=== PATIENT | female | born 1970 | race Caucasian/White ===

== ENCOUNTER 2024-06-08 11:56 | Observation (INO) | payer OTHER, SELFPAY ==
[2024-06-08] VITALS (13 sets, daily range): BP systolic 97–127; BP diastolic 62–85; PULSE 83–102; RESP 14–95; TEMP 36.1–36.9; O2SAT 96–100; BMI 28.3
--- NOTE | 2024-06-08 12:24 | PD.EDRME ---
Rapid Medical Screening Exam E Arrival date/time: 06/08/24 11:56 This is a 54-year-old female presented to the emergency department with complaints of left mid abdominal pain x 1 day. Associated with nausea and emesis. I have greeted and performed a focused initial assessment of this patient. Initial appropriate labs ordered at this time. A comprehensive ED assessment and evaluation of the patient and analysis of all test and completion of medical decision making process will be conducted by additional ED provider. Chief Complaint: Abdominal Pain Time Seen by Provider: 06/08/24 12:14 Vital signs: Vital Signs Temperature 98.0 F 06/08/24 12:14 Pulse Rate 87 06/08/24 12:14 Respiratory Rate 16 06/08/24 12:14 Blood Pressure 127/85 H 06/08/24 12:14 Pulse Oximetry (%) 100 06/08/24 12:14 Oxygen Delivery Method Room Air 06/08/24 12:14
--- NOTE | 2024-06-08 12:29 | XR_ITS ---
Examination: CT abdomen with intravenous contrast CT pelvis with intravenous contrast 2-D coronal reconstructions 2-D sagittal reconstructions Date and time of exam:June 08, 2024 1522 hours INDICATIONS: Onset left-sided abdominal pain today, history diverticulitis on CT examination November 18, 2022. CTDI: vol (mGy) 12.7 DLP: (mGycm) 698 Technique: Multiple axial sections of the abdomen and pelvis have been obtained. 64 slice high-resolution scanner used. 3 mm axial sections have been obtained, post intravenous injection 60 cc [id number] 2-D sagittal, coronal reconstructions obtained. Low dose protocols were performed. One or more of the following dose reduction techniques were used; automated exposure control, adjustment of the mA and/or KV according to patient size, use of iterative reconstruction technique. Findings: No focal liver or splenic lesions No definite gallstones No pancreatic or adrenal mass No renal or ureteral calculi, no hydronephrosis Aorta normal size The appendix is thickened fluid-filled and inflamed, axial images 120 through 160, retrocecal Colonic diverticulosis No pelvic abscess Bladder intact IMPRESSION: Acute appendicitis, no pelvic abscess
[2024-06-08 12:48] LABS: Basophils # (Auto) 0.1 Thou/mm3 (0.0-0.2); Basophils % (Auto) 0 % (0-2.5); Eosinophils % (Auto) 0 % (0-10); Hematocrit 41.7 % (36.0-46.0); Hemoglobin 14.3 g/dL (12.0-16.0); Immature Granulocytes % (Auto) 0 % (0-0); Immature Granulocytes Auto 0.06 Thou/mm3 (0.00-0.00); Lymphocytes # (Auto) 0.9 Thou/mm3 (1.0-4.8); Lymphocytes % (Auto) 5 % (10-50); Mean Corpuscular HGB Conc 34.3 g/dl (31.0-37.0); Mean Corpuscular Hemoglobin 31.2 pg (25.0-35.0); Mean Corpuscular Volume 91 fL (80-100); Monocytes # (Auto) 0.8 Thou/mm3 (0.0-0.8); Monocytes % (Auto) 5 % (0-12); Neutrophils # (Auto) 14.3 Thou/mm3 (1.8-7.7); Neutrophils % (Auto) 89 % (37-80); Nucleated Red Blood Cell % 0 /100 WBC (0); Platelet Count 247 Thou/mm3 (140-440); Red Blood Count 4.59 Miln/mm3 (4.00-5.20); White Blood Count 16.2 Thou/mm3 (3.6-11.0)
[2024-06-08 13:00] LABS: Prothrombin Time 10.7 Seconds (9.0-12.2)
[2024-06-08 13:05] LABS: Alanine Aminotransferase 18 U/L (10-49); Albumin, Serum 4.8 gm/dL (3.5-5.0); Albumin/Globulin Ratio 1.9 (1.2-2.2); Alkaline Phosphatase 50 U/L (46-116); Anion Gap 9 (7-16); Aspartate Amino Transferase 13 U/L (0-34); BUN/Creatinine Ratio 24 Ratio (12-20); Bilirubin,Total 0.5 mg/dL (0.3-1.2); Blood Urea Nitrogen 19 mg/dL (9-23); Carbon Dioxide 24.3 mMol/L (20.0-31.0); Chloride 108 mMol/L (98-107); Creatinine (Component) 0.8 mg/dL (0.6-1.3); Estimated Creatinine Clearance 81.6 mL/min (>60); Globulin 2.5 gm/dL (2.3-3.5); Glucose 107 mg/dL (74-106); Lipase 44 U/L (12-53); Magnesium 2.2 mg/dL (1.6-2.6); Osmolality,Calculated 283 (275-295); Sodium 141 mMol/L (136-145); Total Protein 7.3 gm/dL (5.7-8.2); eGFR > 60 See Note
[2024-06-08] MEDS: ONDANSETRON ODT 4 MG TABRAP PO (13:37)
[2024-06-08] MEDS: HYDROcodone/APAP 5/325 TABLET 1 TAB PO ×2 (13:39→22:36)
[2024-06-08] MEDS: SODIUM CHLORIDE 0.9% 1000 ML 1,000 ML 999 ML IV (15:41)
[2024-06-08] MEDS: ONDANSETRON INJ 2 MG/ML INJ 2 ML 4 MG IV (15:45)
[2024-06-08] MEDS: MORPHINE SULF INJ 10 MG/ML VIAL 5 MG IVP (15:45)
--- NOTE | 2024-06-08 18:30 | PC.NURSE ---
PT IN TODAY FOR ABD PAIN, N/V FOR THE LAST WEEK. PT STATES THAT TODAY SHE FELT WORSE SO SHE CAME IN FOR EVALUATION.
--- NOTE | 2024-06-08 18:30 | PD.EDABDPN ---
ED Abdominal Pain RME/HPI General Chief Complaint: Abdominal Pain Stated complaint: abdominal pain and n/v this am Time seen by provider: 06/08/24 12:14 Arrival date/time: 06/08/24 11:56 RME / HPI RME / HPI narrative: 54-year-old female patient with significant history of lupus, psoriatic arthritis, came in for evaluation regarding right lower quadrant pain. Onset of symptoms earlier this morning associated with nausea, vomiting nonbloody. Denies any fever. Denies any other complaints no medications taken prior to arrival. Related Data Previous Rx's ?Medication ?Instructions ?Recorded ciprofloxacin HCl 500 mg tablet 500 mg PO BID #20 tabs 11/18/22 hydrocodone 5 mg-acetaminophen 325 1 tab PO Q6H PRN pain #14 tabs 11/18/22 mg tablet Allergies Allergy/AdvReac Type Severity Reaction Status Date / Time No Known Allergies Allergy Verified 06/08/24 11:59 Review of Systems Review of Systems Narrative Review of Systems: Review of system reviewed and within normal limits except mentioned in HPI ED Exam Narrative Physical exam: VITAL SIGNS: Reviewed. GENERAL APPEARANCE: Alert and interactive, follows commands, no acute distress, HEAD AND FACE: Non-traumatic. ENT: PERRL, pink conjunctivitis, eyelid no trauma, Mucous membrane moist. NECK: Supple, nontender, no nuchal rigidity. CHEST: No tenderness, no crepitus, no paradoxical movement, no retractions. LUNGS: Clear, well ventilated, symmetric, no rales, no wheezing, no ronchi, no stridor, good breath sounds bilaterally. HEART: Regular rate, regular rhythm, no murmur, no gallops. ABDOMEN: Soft, positive bowel sounds, nondistended, no guarding, right lower quadrant tenderness, no rebound, no masses, RECTAL: Deferred. GENITAL: Deferred. NEUROLOGICAL: Gross motor function intact sensory function intact, Appropriate for age. MUSCULOSKELETAL: low back nontender, full range of motion. EXTREMITIES: Nontender, full range of motion. SKIN: Color pink, dry, no rash, no lacerations, no abrasions, no contusions. LYMPHATICS: Deferred. Course Quality Measures none Orders Category Date Time Status CT Screening NOW Care 06/08/24 12:29 Active Insert IV NOW Care 06/08/24 15:06 Active NPO STAT Care 06/08/24 12:22 Active Consult to General Surgery Stat Cons 06/08/24 18:[address] abdomen pelvis w con Stat Exams 06/08/24 12:29 Completed CBC Stat Lab 06/08/24 12:34 Completed Comprehensive Metabolic Panel Stat Lab 06/08/24 12:34 Completed Lipase Stat Lab 06/08/24 12:34 Completed Magnesium Stat Lab 06/08/24 12:34 Completed Prothrombin Time with INR Stat Lab 06/08/24 12:34 Completed Urinalysis Stat Lab 06/08/24 12:22 Ordered HYDROcodone*/APAP 5/325 [[place] 5/325] Med 06/08/24 13:36 Discontinued 1 tab PO X1 ONE Morphine Inj Med 06/08/24 15:06 Discontinued 5 mg IVP X1 ONE Ondansetron Inj [Zofran Inj] Med 06/08/24 15:06 Discontinued 4 mg IV X1 ONE Ondansetron Odt [Zofran Odt] Med 06/08/24 12:21 Discontinued 4 mg PO X1 ONE Piper/Tazo 3.375 gm [Zosyn] Med 06/08/24 18:27 Active 3.375 gm in 50 ml IV X1 Sodium Chloride 0.9% 1000 ml [Ns] 1,000 ml Med 06/08/24 15:06 Discontinued IV 999 mls/hr Vital Signs Vital signs: Vital Signs Temperature 98.0 F 06/08/24 12:14 Pulse Rate 87 06/08/24 12:14 Respiratory Rate 16 06/08/24 12:14 Blood Pressure 127/85 H 06/08/24 12:14 Pulse Oximetry (%) 100 06/08/24 12:14 Oxygen Delivery Method Room Air 06/08/24 12:14 Abdominal Pain MDM MDM Narrative MDM Narrative:: 54-year-old female patient with significant history of lupus, psoriatic arthritis, came in for evaluation regarding right lower quadrant pain. Onset of symptoms earlier this morning associated with nausea, vomiting nonbloody. Denies any fever. Denies any other complaints no medications taken prior to arrival. Laboratory workup significant for leukocytosis 16,000. CT scan of the abdomen showed acute appendicitis. I consulted Dr. Sow, general surgeon on-call, who will do surgery tonight. Patient received IV Zosyn and IV fluids for hydration. Plan of care discussed with the patient and family. Patient data External records reviewed:: None Clinical information provided by:: none Social determinants that could affect healthcare access:: none Patient has the following chronic illnesses:: Lupus, psoriatic arthritis How is presenting disease/condition affected by chronic disease/condition?: uneffected by Evaluation data The following diagnostics were reviewed and interpreted by me:: lab results and radiology exam(s) Lab and/or radiology exams considered but not ordered:: None Interpretation Summary: Laboratory workup significant for leukocytosis. CT scan of the abdomen showed acute appendicitis no abscess noted. Medications / Prescriptions Medications or Prescriptions considered but not ordered:: None Medication administrations:: Medication Administration History Piperacillin/Tazobactam/Dextrose (Zosyn) 3.375 gm in 50 mls @ 100 mls/hr IV X1 ONE Stop: 06/08/24 18:56 Discontinued Medications Hydrocodone Bitart/Acetaminophen (Hydrocodone/Apap 5/325 Tablet) 1 tab PO X1 ONE Stop: 06/08/24 13:37 Last Admin: 06/08/24 13:39 Dose: 1 tab Documented By: GM Sodium Chloride (Ns) 1,000 mls @ 999 mls/hr IV .Q1H1M ONE Stop: 06/08/24 16:06 Last Admin: 06/08/24 15:41 Dose: 999 mls/hr Documented By: OA Morphine Sulfate (Morphine Sulf Inj 10 Mg/Ml Vial) 5 mg IVP X1 ONE Stop: 06/08/24 15:07 Last Admin: 06/08/24 15:45 Dose: 5 mg Documented By: GM Ondansetron HCl (Ondansetron Odt 4 Mg Tabrap) 4 mg PO X1 ONE; Protocol Stop: 06/08/24 12:22 Last Admin: 06/08/24 13:37 Dose: 4 mg Documented By: GM Ondansetron HCl (Ondansetron Inj 2 Mg/Ml Inj 2 Ml) 4 mg IV X1 ONE; Protocol Stop: 06/08/24 15:07 Last Admin: 06/08/24 15:45 Dose: 4 mg Documented By: GM IV Zosyn morphine IV fluids and Zofran Consultations Consultation(s) initiated? (list below): Yes Consultation #1 (Physician, Specialty, Details): Consulted Dr. Sow, general surgeon on-call, thank you Dr. Sow Diagnosis Differential diagnosis abdominal pain: abdominal pain and acute appendicitis Most likely diagnosis given after review of the tests above:: Acute appendicitis Admission Indicated Admission indicated?: indicated Explain why admission is indicated or not indicated:: Patient needs to be admitted for further management Admission Request Was there a request for admission?: Yes Admission Attestation Admission request attestation: Dr Sow agrees to accept the patient for admission. Disposition Plan Disposition Plan: Admit Discharge Plan Plan Patient Disposition: Admit Acute Care w/in Hospital Prescriptions/Referrals Prescriptions/Med Rec: No Action ciprofloxacin HCl 500 mg tablet 500 mg PO BID Qty: 20 0RF hydrocodone-acetaminophen 5-325 mg tablet 1 tab PO Q6H MDD 4 PRN (Reason: pain) Qty: 14 0RF Referrals: Kiet Nieves MD [Primary Care Provider] - In 1 week Problem List Clinical Impression: Acute appendicitis Patient/Caregiver Discharge Instructions Print Language: Estonian Stand Alone Forms: Brittnee Award Info., Patient Portal Info Letter
[2024-06-08] MEDS: PIPER/TAZO 3.375 GM 3.375 GM/50 ML BAG IV (18:44)
--- NOTE | 2024-06-08 19:50 | PD.SURHP ---
HPI Date of Admission 06/08/24 18:49 HPI 54F with SLE, psoriatic arthritis, fibromyalgia presenting with abdominal pain and vomiting. Patient reports that she has been experiencing what she thought was a lupus flare this week which includes GI symptoms, however this morning she felt severe pain in the right lower quadrant associated with vomiting. She denies history of similar pain. Workup is consistent with acute appendicitis PMH: SLE, psoriatic arthritis, fibromyalgia PSH: , cerclage Meds: Topamax, Ozempic (last dose a week ago), Taltz injections monthly (last one 1 month ago, next dose was due tomorrow) Allergies: NKDA Social history: Non-smoker Family history: No known malignancy Review of Systems Review of Systems ROS Unobtainable: All systems reviewed & no additional complaints except as documented Meds Home Medications and Allergies Allergies Allergy/AdvReac Type Severity Reaction Status Date / Time No Known Allergies Allergy Verified 06/08/24 11:59 Exam Vital Signs Temp Pulse Resp BP Pulse Ox O2 Del Method 98.2 F 102 H 18 108/67 97 Room Air 06/08/24 17:59 06/08/24 17:59 06/08/24 17:59 06/08/24 17:59 06/08/24 17:59 06/08/24 17:59 Constitutional Constitutional: no acute distress Routine Respiratory Exam Respiratory: Present no resp distress Routine Abdominal Exam Abdominal: Present soft and tenderness (Mild tenderness right lower quadrant, negative Rovsing sign); Absent distended or rebound Results Results: Laboratory Laboratory results: results reviewed Results: Imaging CT scan - abdomen: report reviewed and image reviewed Assessment & Plan Plan 54F with SLE, psoriatic arthritis, fibromyalgia presenting with signs and symptoms of acute appendicitis. I explained that surgery is not mandatory to treat appendicitis but that it can lead to faster recovery. I enumerated risks of surgery including need for conversion to open, bleeding, infection, inability to safely remove the appendix, need for drain placement, and hernia. Patient expressed understanding and would like to proceed Quality Measures Quality Measures none
--- NOTE | 2024-06-08 20:28 | PC.NURSE ---
2004 spoke with or nurse. pt was taken to OR by OR staff around 2009
--- NOTE | 2024-06-08 20:59 | PD.SUROPNT ---
Date of Procedure 06/08/24 Pre Op Diagnosis Acute appendicitis Post Op Diagnosis Same Procedure Laparoscopic appendectomy Findings Acutely inflamed appendix Procedure Description After discussion of risks and benefits, patient was brought to the operating room, SCDs were placed and general anesthesia was induced. She had already received preoperative antibiotics and urinated immediately prior to entering the OR. She was prepped and draped in the usual sterile fashion. After timeout an infraumbilical incision was made with #11 blade and the skin was elevated with towel clamps. The Veress needle was placed to the incision and proper positioning was confirmed with a drop test. The abdomen was insufflated to 15 mmHg at which point the Veress was exchanged for a 5 mm camera using a Visiport technique. There were no signs of injury from the point of entry. 2 additional ports were placed under direct vision, one 5 mm in the suprapubic region and one 5 mm in the left lower quadrant. The infraumbilical port was upsized to a 12 mm also under direct vision. Patient was placed in left side down and Trendelenburg. The appendix was ease identified by tracing the attending of the colon. It was noted to be inflamed but not perforated or necrotic. A window was made between the base of the appendix and the mesoappendix with blunt dissection and the base of the appendix was stapled using a 45 mm blue load stapler. The mesoappendix was transected with the harmonic scalpel. The area was gently irrigated and there were no signs of bleeding. The pelvis was also suctioned as there was minimal purulent fluid there. The specimen was removed in an Endo Catch bag via the infraumbilical port and the infraumbilical fascia was closed with a 0 Vicryl suture using a Sekou-Germaine. Pneumoperitoneum was released And ports were removed. Incisions were irrigated and infiltrated with half percent Marcaine for a total of 20 cc. Incisions were closed with 4 Monocryl and reinforced with Dermabond. Patient was extubated and brought to PACU in stable condition Pathology / specimen Other (Appendix) Estimated Blood Loss 20 Surgeon Allegra Sow MD Surgical Staff Operation Date: 06/08/24 20:15 Case Staff Anesthesiologist: Tyler Fuchs RN First Assistant: Marva Martinez
--- NOTE | 2024-06-08 21:01 | SUR.PHASEI ---
Pt. arrived to recovery via gurney, eyes closed, responds to verbal commands, VSS, lung sounds clear equal expansion meli., pt. receiving 6 liters 02 via oxymask, lap sites x3 to abdomen, dermabond intact, no active bleeding or redness noted, IV to right AC flushed and patent, report received from Rick WOODS and Dr. Fuchs.
[2024-06-08] MEDS: ACETAMINOPHEN IVPB 1,000 MG/100 ML VIAL 250 MG IV (21:15)
[2024-06-08] MEDS: fentaNYL CIT INJ 50 mCg/ML AMP 2ML 25 MCG IV (21:45)
--- NOTE | 2024-06-08 21:50 | SUR.PHASEI ---
Called and gave report on pt. s/p surgery to Barak WOODS on M/S unit.
--- NOTE | 2024-06-08 22:00 | SUR.PHASEI ---
Pt. transferred to room 383 via gurney with all of belongings, VSS, no c/o pain or nausea at this time, lap sites x3 CDI, IV flushed and patent. Pt.'s parents at bedside. Barak WOODS assumed care of pt.
[2024-06-09] VITALS: BP 94/63; PULSE 90; RESP 15; TEMP 37; O2SAT 95
--- NOTE | 2024-06-09 01:08 | PC.NURSE ---
Addendum entered by Moe Bryan RN 06/09/24 01:17: PEGGY Rosa contacted Dr. Sow at Dr. Sow ordered Morphine 4mg q4H PRN for severe pain. Addendum entered by Moe Bryan RN 06/09/24 01:12: Dr. Klein said to contact Dr. Sow. PEGGY Rosa will notify PEGGY Cancino Original Note: PEGGY Rosa covering PEGGY Cancino for lunch. Patient requesting pain meds for severe pain. Last norco was given at 2236. Peterman is q4H. Next dose is at 2236. RN will call hospitalist to see if they can put an order.
[2024-06-09] MEDS: MORPHINE SULF INJ 10 MG/ML VIAL 4 MG IVP ×2 (01:37→05:37)
[2024-06-09] MEDS: PIPER/TAZO 3.375 GM 3.375 GM/50 ML BAG IV (02:14)
[2024-06-09 04:00] VITALS: BP 94/61; PULSE 77; RESP 17; TEMP 36.4; O2SAT 97
[2024-06-09 08:00] VITALS: BP 92/76; PULSE 77; RESP 18; TEMP 37; O2SAT 96
--- NOTE | 2024-06-09 08:11 | PD.SURPROG ---
Documentation for date of: 06/09/24 Subjective Subjective Brief History: 54F with SLE, psoriatic arthritis, fibromyalgia presenting with abdominal pain and vomiting. Patient reports that she has been experiencing what she thought was a lupus flare this week which includes GI symptoms, however this morning she felt severe pain in the right lower quadrant associated with vomiting. She denies history of similar pain. Workup is consistent with acute appendicitis PMH: SLE, psoriatic arthritis, fibromyalgia PSH: , cerclage Meds: Topamax, Ozempic (last dose a week ago), Taltz injections monthly (last one 1 month ago, next dose was due tomorrow) Allergies: NKDA Social history: Non-smoker Family history: No known malignancy Narrative: Having moderate pain in the right lower quadrant, no nausea, tolerating clears Exam Vital Signs Temp Pulse Resp BP Pulse Ox O2 Del Method O2 Flow Rate 97.6 F 77 17 94/61 97 Room Air 4 06/09/24 04:00 06/09/24 04:00 06/09/24 04:00 06/09/24 04:00 06/09/24 04:00 06/09/24 04:00 06/08/24 21:11 Constitutional Constitutional: no acute distress Routine Respiratory Exam Respiratory: Present no resp distress Routine Abdominal Exam Abdominal: Present soft and wound (Incisions clean dry intact, no erythema or drainage); Absent tenderness or distended Results Results: Laboratory Laboratory results: results reviewed Assessment & Plan Plan 54F status post laparoscopic appendectomy 06/08, recovering well overall Procedures Procedures Laparoscopic appendectomy
--- NOTE | 2024-06-09 08:12 | PD.SURDS ---
Planned Discharge Date 06/09/24 DS: Providers Provider Date of admission: 06/08/24 18:49 Primary care physician: Kiet Nieves MD Admitting Provider: Allegra Sow MD Attending Provider on Admission: Allegra Sow MD Consults: 06/08/24 18:29 Consult to General Surgery Stat Comment: Acute appendicitis Consulting Provider: Allegra Sow Attending Provider on DC: Allegra Sow MD Discharging Provider: Allegra Sow MD Diagnosis Discharge Diagnosis (1) Acute appendicitis: Status: Acute Problem List Completed Was Problem List Reviewed/Reconciled?: Yes Exam Vital Signs Temp Pulse Resp BP Pulse Ox O2 Del Method O2 Flow Rate 97.6 F 77 17 94/61 97 Room Air 4 06/09/24 04:00 06/09/24 04:00 06/09/24 04:00 06/09/24 04:00 06/09/24 04:00 06/09/24 04:00 06/08/24 21:11 Constitutional Constitutional: no acute distress Routine Respiratory Exam Respiratory: Present no resp distress Routine Abdominal Exam Abdominal: Present soft; Absent tenderness or distended Discharge Plan Plan Patient Disposition: HOME (Self Care) Prescriptions/Referrals Prescriptions/Med Rec: New oxycodone-acetaminophen 10-325 mg tablet 1 tab PO Q6H MDD 6 tabs PRN (Reason: pain) Qty: 20 0RF docusate sodium [Colace] 100 mg capsule 100 mg PO QDAY PRN (Reason: constipation) Qty: 30 0RF No Action ciprofloxacin HCl 500 mg tablet 500 mg PO BID Qty: 20 0RF hydrocodone-acetaminophen 5-325 mg tablet 1 tab PO Q6H MDD 4 PRN (Reason: pain) Qty: 14 0RF Referrals: Allegra Sow MD [Physician] - (You will receive a phone call to confirm a follow-up appointment with me in 2 weeks) Kiet Nieves MD [Primary Care Provider] - Patient/Caregiver Discharge Instructions Other Discharge Activity Instructions:: Avoid lifting objects greater than 10 pounds for 6 weeks You may resume showering tomorrow, 06/10 Avoid bathing for 2 weeks Your stitches have skin glue on them which will fall off on its own and does not need to be replaced Your stitches will not need to be removed If you develop worsening pain, nausea/vomiting, fever please seek care in ER During the surgery we fill your abdomen with air in order to visualize the structures. Some of this air may linger and cause referred pain to your shoulder as well as pain with taking deep breaths. The air will resorb over a matter of days to weeks. Walking will help this process Education Materials: Appendectomy Laparoscopic Dc, Preventing Surgical Site Infections Print Language: Malaysian Stand Alone Forms: Brittnee Award Info., Patient Portal Info Letter, Work/Release Restrictions Discharge Order Discharge Orders: Discharge (Routine); Ordered 06/09/24 Ordered By: Allegra Sow Results Results: Laboratory Laboratory results: results reviewed Results: Imaging CT scan - abdomen: report reviewed and image reviewed Procedures Procedures Laparoscopic appendectomy
[2024-06-09] MEDS: DOCUSATE SOD LIQD 100 MG/10 ML UDC PO (08:46)
[2024-06-09] MEDS: HYDROcodone/APAP 10/325 TAB PO (10:26)
[2024-06-09 12:00] VITALS: BP 92/62; PULSE 85; RESP 18; TEMP 36.2; O2SAT 96
== END 2024-06-09 13:45 | disposition home or self-care (01) ==
LOC: SERX 18:30 → SERHOLD 19:06 → S3SX 22:01
PROVIDERS: Nurse Practitioner Primary Care; Admitting Provider Surgery; Emergency Provider Emergency Medicine; PCP Internal Medicine; Visit Provider Surgery
PROC: 0DTJ4ZZ Resection of Appendix, Percutaneous Endoscopic Approach (ICD-10-PCS; CPT 44970; principal; 2024-06-08 20:00)
DX: K35.30 Acute appendicitis with localized peritonitis, without perforation or gangrene (principal); L40.50 Arthropathic psoriasis, unspecified; M32.9 Systemic lupus erythematosus, unspecified; M79.7 Fibromyalgia
CPT/HCPCS: 44970; 36415; 74177; 80053; 81001; 83690; 83735; 85025; 85610; 96361; 96374; 96375; 96376; 99285; A4217; A4649; G0378; J0131; J1100; J1885; J2250; J2270; J2371; J2405; J2543; J2704; J3010; J3490; J7030; Q0162; Q9967; A9270

== ENCOUNTER 2024-06-26 14:02 | Outpatient (AMB) | payer OTHER, SELFPAY ==
[2024-06-26 14:31] VITALS: BP 108/72; PULSE 78; RESP 19; TEMP 36.1; O2SAT 98; BMI 29.2
--- NOTE | 2024-06-26 14:31 | PD.GSCLVISIT ---
Vital Signs - [facility] 06/26/24 14:31 Height 1.65 m Height Method Stated Weight 79.549 kg Weight Measurement Method Standing Scale BMI 29.2 BP 108/72 Blood Pressure Source Automatic Cuff Blood Pressure Location Left Upper Arm Position Sitting Respiration 19 Pulse 78 Pulse Source Monitor Temp 96.9 F Temp Source Temporal Artery Scan Pulse Oximetry (%) 98 Oxygen Delivery Method Room Air Med/Allergies Allergies & Medications Allergies No Known Allergies Allergy (Verified 06/26/24 14:32) Medication Reconciliation ciprofloxacin HCl 500 mg tablet 500 mg PO BID #20 tabs 11/18/22 [Rx Confirmed 06/26/24] hydrocodone 5 mg-acetaminophen 325 mg tablet 1 tab PO Q6H PRN pain #14 tabs 11/18/22 [Rx Confirmed 06/26/24] docusate sodium 100 mg capsule (Colace) 100 mg PO QDAY PRN constipation #30 caps 06/09/24 [Rx Confirmed 06/26/24] oxycodone-acetaminophen 10 mg-325 mg tablet 1 tab PO Q6H PRN pain #20 tabs 06/09/24 [Rx Confirmed 06/26/24] MA Intake Visit Data Collection New Patient or Established: Established Patient (seen at [facility] within 3 years) Seen by Clinical Staff ONLY (RN/MA): No Reason for Visit:: APPENDICITIS FOLLOW UP Pain Present Currently: No Pain scale:: 3 Panelboard Tank Pumper Required: No PCP or OBGYN visit in last 3 months: Yes Hx Now: No Do You Feel Safe at Home: Yes Authorities Contacted: N/A Smoking Status Smoking Status: Never smoker Immunization / Flu Flu Vaccine in the Last 12 Months: No Flu Vaccine Exclusion Criteria: No Exclusion Criteria Past Medical History Past Medical History NEUROLOGIC: Negative Seizures CARDIAC: Negative Cardiac Disorders or Congestive Heart Failure RESPIRATORY: Negative Chronic Obstructive Pulmonary Disease (COPD) or Asthma GASTROINTESTINAL: Positive Diverticulitis GENITOURINARY: Negative Renal Disease MUSCULOSKELETAL: Positive Arthritis (PSORIATIC ARTHIRITS) and Fibromyalgia ENDOCRINE: Negative Diabetes Mellitus Type 1 or Diabetes Mellitus Type 2 HEMATOLOGIC: Negative Sickle Cell Disease OTHER HISTORY: Negative Blood Transfusions, Blood Transfusion Reaction or Anesthesia Reactions Surgical History SURGICAL: Positive Section (X1) Social History SMOKING STATUS: Smoking status: Never smoker ALCOHOL: Alcohol Intake: Never HOUSING: Housing: House LIVES WITH: Lives With: Children HPI HPI Narrative 54F with SLE, psoriatic arthritis, fibromyalgia presenting with signs and symptoms of acute appendicitis s/p laparoscopic appendectomy 06/08 here for planned follow up. Pt reports feeling well overall; she has mild pains in the RLQ for which she took ibuprofen the other day but is overall feeling well, with no fevers and gradually increasing her activity. She states she has baseline nausea which is unchanged and her appetite is gradually returning Pt confirms she is up to date on her colonoscopy and recently had a Cologuard test which was negative ROS Review of Systems Systems Reviewed: All systems reviewed, normal except as documented Objective/Exam General General Appearance: alert, cooperative and well groomed Resp Respiratory exam: Absent respiratory distress Abdominal Abdominal exam: Present soft and incision (c/d/i, no erythema, no fluctuance or tenderness); Absent distention or tenderness Results Pathology of appendix: transmural acute appendicitis with serositis Assessment & Plan Diagnosis / Problem List (1) Acute appendicitis: Status: Acute Assessment & Plan: 54F s/p laparoscopic appendectomy 06/08, recovering well Plan: Pt advised to avoid strenuous activity including lifting objects >10lbs for 6 weeks postop F/u as needed Office Procedures GNS Level of Care Nursing/Assessment Patient Status: Established Patient Nursing Assessment/Reassesment: Medication Reconciliation, Update PMH in EMR and Vital Signs Coordination of Care: Complex Care and Chronic Disease 1-5, Consent,records obtained, informed consent, Education Simp Pt/Fam, Results/Orders obtained and Staff clarify orders Established Patient Charge Established Patient Point Assignment: 90 Established Patient Point Charge: EP Level 3 (80-115) Patient Portal Questionaires Social History Living Situation History Housing: House Tobacco History Smoking Status: Never smoker Alcohol History Alcohol Intake: Never Domestic Abuse History Do You Feel Safe at Home: Yes Review of Systems Report any current symptoms Only answer those that you have currently: Past Medical History Past Medical History Have you ever been diagnosed with any of the following: Neurological Problems Seizures: No Cardiology Problems Congestive Heart Failure: No Respiratory Problems Chronic Obstructive Pulmonary Disease (COPD): No Asthma: No Stomache/Intestinal Problems Diverticulitis: Yes Genital/Urinary Problems Renal Disease: No Musculoskeletal Problems Arthritis: Yes (PSORIATIC ARTHIRITS) Fibromyalgia: Yes Endocrine Problems Diabetes Mellitus Type 1: No Diabetes Mellitus Type 2: No Blood Problems Sickle Cell Disease: No Other Problems Blood Transfusions: No Blood Transfusion Reaction: No Anesthesia Reactions: No
== END 2024-06-26 14:43 | disposition home or self-care (01) ==
PROVIDERS: PCP Internal Medicine; Referring Provider Internal Medicine; Supervising Provider Surgery; Visit Provider Surgery
DX: Z48.815 Encounter for surgical aftercare following surgery on the digestive system (principal)
CPT/HCPCS: 99213; G0463

== ENCOUNTER → 2024-07-24 | Outpatient (CLI) | payer OTHER, SELFPAY ==
[2024-07-24 21:12] LABS: Stool for WBCs None Seen (Negative)
[2024-07-25 16:04] LABS: Clostridium Difficile PCR Negative (Negative)
== END | disposition home or self-care (01) ==
LOC: SLDO 12:16
PROVIDERS: Referring Provider Internal Medicine; Visit Provider Internal Medicine
DX: R19.7 Diarrhea, unspecified (principal)
CPT/HCPCS: 87015; 87045; 87046; 87205; 87493; 87899

== ENCOUNTER → 2025-02-23 | Outpatient (CLI) | payer OTHER, SELFPAY ==
--- NOTE | 2025-02-23 | XR_ITS ---
Examination: Hand, right 3 views Technique: Hand AP, oblique, lateral 3 views Date and time of exam: February 23, 2025 1205 hours INDICATIONS: Right hand pain and numbness beginning 3 weeks ago. FINDINGS: Mild juxta-articular bone demineralization. No erosive or other significant arthritic change. No fractures. No avascular necrosis IMPRESSION: No erosive or other significant arthritic change
--- NOTE | 2025-02-23 | XR_ITS ---
Examination: Right elbow 3 views Technique: Elbow AP, oblique, lateral 3 views Exam date and time: February 23, 2025 1205 hours INDICATIONS: Right elbow pain and numbness beginning 3 weeks ago. FINDINGS: Mild diffuse elbow osteoarthritis including minor spurring of the coronoid process of the ulna No fracture No elbow effusion IMPRESSION: Mild osteoarthritis.
--- NOTE | 2025-02-23 | XR_ITS ---
Examination: Wrist, right 3 views Technique: Wrist AP, oblique, lateral 3 views Date and time of exam: February 23, 2025 1205 hours INDICATIONS: Right wrist pain and numbness beginning 3 weeks ago. FINDINGS: Mild to moderate osteopenia. Mild osteoarthritis navicular trapezium radiocarpal and first carpal metacarpal joints No erosive arthritis IMPRESSION: Mild osteoarthritis
== END | disposition home or self-care (01) ==
PROVIDERS: PCP Internal Medicine
DX: M79.641 Pain in right hand (principal); M19.031 Primary osteoarthritis, right wrist; M19.021 Primary osteoarthritis, right elbow
CPT/HCPCS: 73080; 73110; 73130